=== PATIENT | female | born 1970 | race Two or more races ===

== ENCOUNTER 2016-08-11 23:07 | Emergency (ER) | payer MEDICAID ==
[~2016-08-11] VITALS: Ht 170.2 cm; Wt 75.8 kg
[~2016-08-11 23:07] MED LIST: ALPR0.5T; ATEN50TA PO; ATEN50TA80
[2016-08-12 00:18] LABS: Basophils # (auto) 0.1 uL; Basophils % (auto) 0.7 % (0.0-2.0); Eosinophils # (auto) 0.6 uL; Eosinophils % (auto) 5.2 % (0.0-7.0); Hematocrit 41.9 % (36.0-46.0); Hemoglobin 13.9 g/dL (12.2-16.2); Lymphocytes # (auto) 4.3 uL; Lymphocytes % (auto) 38.4 % (10.0-50.0); Mean Corpuscular Hemoglobin 28.9 pg (28.0-32.0); Mean Corpuscular Hgb Conc. 33.3 g/dL (32.0-36.0); Mean Platelet Volume 8.6 fL (7.4-10.4); Monocytes # (auto) 0.9 uL; Neutrophils # (auto) 5.4 uL; Neutrophils % (auto) 47.7 % (37.0-80.0); Platelet Count (auto) 326 10^3/uL (140-450); Red Cell Distribution Width 14.5 % (11.6-16.0); White Blood Cell 11.3 10^3/uL (4.4-10.8)
[2016-08-12 00:44] LABS: Albumin 3.4 g/dL (3.4-5.0); BUN/Creatinine Ratio 14.3; Bilirubin, Total 0.2 mg/dL (0.2-1.0); Calcium 8.4 mg/dL (8.5-10.1); Magnesium 2.7 mg/dL (1.6-2.6); Total Protein 7.2 g/dL (6.4-8.2)
[2016-08-12 05:06] LABS: Urine Bilirubin Negative (Negative); Urine Blood Negative /uL (Negative); Urine Color Yellow (Yellow); Urine Glucose Normal (Normal); Urine Ketone Negative (Negative); Urine Mucus FEW (None Seen); Urine Nitrite Negative (Negative); Urine RBC 2 /hpf (0 - 4); Urine Squamous Epithelial Cell FEW /hpf (<5); Urine Urobilinogen Normal (Negative)
[2016-08-12] MEDS ORDERED: MAGNESIUM CITRATE SOLUTION 300 ML BTL PO ONE (05:45)
[2016-08-12 07:30] VITALS: BP 119/79
== END 2016-08-12 08:10 | disposition home or self-care (01) ==
LOC: ER 23:08
DX: K29.00 Acute gastritis without bleeding (principal); K56.41 Fecal impaction; E78.5 Hyperlipidemia, unspecified; I10 Essential (primary) hypertension; F17.210 Nicotine dependence, cigarettes, uncomplicated; Z90.49 Acquired absence of other specified parts of digestive tract; Z88.6 Allergy status to analgesic agent; Z86.73 Personal history of transient ischemic attack (TIA), and cerebral infarction without residual deficits
CPT/HCPCS: 36415; 74176; 76705; 80053; 81001; 81025; 82150; 83690; 83735; 85025; 94761

== ENCOUNTER 2016-08-15 23:17 | Emergency (ER) | payer MEDICAID ==
[~2016-08-15] VITALS: Ht 167.6 cm; Wt 67.6 kg
[2016-08-16 00:13] LABS: Basophils # (auto) 0.1 uL; Basophils % (auto) 0.8 % (0.0-2.0); Eosinophils # (auto) 0.4 uL; Eosinophils % (auto) 4.8 % (0.0-7.0); Hematocrit 42.9 % (36.0-46.0); Lymphocytes % (auto) 32.4 % (10.0-50.0); Mean Corpuscular Hemoglobin 28.2 pg (28.0-32.0); Mean Corpuscular Hgb Conc. 32.7 g/dL (32.0-36.0); Mean Corpuscular Volume 86.1 fL (80.0-100.0); Mean Platelet Volume 8.4 fL (7.4-10.4); Monocytes # (auto) 0.6 uL; Monocytes % (auto) 6.2 % (0.0-12.0); Neutrophils # (auto) 5.2 uL; Neutrophils % (auto) 55.8 % (37.0-80.0); Platelet Count (auto) 291 10^3/uL (140-450); Red Cell Distribution Width 13.4 % (11.6-16.0); White Blood Cell 9.3 10^3/uL (4.4-10.8)
[2016-08-16 00:28] LABS: Albumin 3.4 g/dL (3.4-5.0); BUN/Creatinine Ratio 12.2; Calcium 8.7 mg/dL (8.5-10.1); Potassium 3.9 mmol/L (3.5-5.1)
[2016-08-16 00:30] LABS: INR 0.97 (0.9-1.15); Partial Thromboplastin Time 26.1 sec (22.64-33.71)
[2016-08-16 00:36] LABS: Bilirubin, Total 0.2 mg/dL (0.2-1.0); Total Protein 7.1 g/dL (6.4-8.2)
[2016-08-16 02:35] LABS: Urine RBC None Seen /hpf (0 - 4)
[2016-08-16 02:52] LABS: Urine Bilirubin Negative (Negative); Urine Blood Negative /uL (Negative); Urine Color Yellow (Yellow); Urine Glucose Normal (Normal); Urine Ketone Negative (Negative); Urine Nitrite Negative (Negative); Urine Squamous Epithelial Cell FEW /hpf (<5); Urine Urobilinogen Normal (Negative); Urine pH 6.5 (5.0-8.0)
[2016-08-16] MEDS ORDERED: SODIUM CHLORIDE 0.9% 1,000 ML IV ONE (07:35)
[2016-08-16] MEDS ORDERED: METOCLOPRAMIDE HCL 5MG/ml INJ 2ml VIAL IV ONE (07:45)
[2016-08-16] MEDS ORDERED: KETOROLAC TROMETH 30 MG/ML 1ML VIAL IV ONE (07:45)
[2016-08-16 09:30] VITALS: BP 108/64
== END 2016-08-16 10:51 | disposition home or self-care (01) ==
LOC: ER 23:24
DX: K80.20 Calculus of gallbladder without cholecystitis without obstruction (principal); R10.9 Unspecified abdominal pain; E78.5 Hyperlipidemia, unspecified; I10 Essential (primary) hypertension; Z88.6 Allergy status to analgesic agent; Z88.8 Allergy status to other drugs, medicaments and biological substances
CPT/HCPCS: 36415; 80053; 81001; 81025; 82150; 83690; 85025; 85610; 85730; 96361; 96374; 96375; 99284; J1885; J2765

== ENCOUNTER 2017-10-01 19:33 | Emergency (ER) | payer MEDICAID ==
[~2017-10-01] VITALS: Ht 152.4 cm; Wt 78.9 kg
[2017-10-01 20:59] LABS: Basophils # (auto) 0.1 uL; Basophils % (auto) 0.9 % (0.0-2.0); Eosinophils # (auto) 0.3 uL; Eosinophils % (auto) 2.6 % (0.0-7.0); Hematocrit 40.7 % (36.0-46.0); Hemoglobin 13.3 g/dL (12.2-16.2); Lymphocytes # (auto) 3.3 uL; Lymphocytes % (auto) 29.7 % (10.0-50.0); Mean Corpuscular Hemoglobin 28.6 pg (28.0-32.0); Mean Corpuscular Hgb Conc. 32.8 g/dL (32.0-36.0); Mean Corpuscular Volume 87.2 fL (80.0-100.0); Monocytes # (auto) 0.7 uL; Monocytes % (auto) 6.6 % (0.0-12.0); Neutrophils # (auto) 6.6 uL; Neutrophils % (auto) 60.2 % (37.0-80.0); Nucleated Red Blood Cells % 0.2 %; Platelet Count (auto) 300 10^3/uL (140-450); Red Blood Cells 4.67 10^6/uL (4.0-5.20); Red Cell Distribution Width 14.8 % (11.8-14.3)
[2017-10-01 21:13] LABS: Albumin 3.4 g/dL (3.4-5.0); Calcium 8.1 mg/dL (8.5-10.1); Potassium 3.6 mmol/L (3.5-5.1)
[2017-10-01 21:16] LABS: Bilirubin, Total 0.2 mg/dL (0.2-1.0); Total Protein 7.1 g/dL (6.4-8.2)
[2017-10-01 22:14] LABS: Urine Bacteria NONE SEEN /hpf (None Seen); Urine Blood Negative /uL (Negative); Urine Specific Gravity 1.007 (1.001-1.035); Urine WBC 1 /hpf (0 - 5)
[2017-10-02] MEDS ORDERED: ONDANSETRON HCL 4 MG/2 ML VIAL IV ONE (01:00)
[2017-10-02] MEDS ORDERED: HYDROmorphone HCL 2 MG/ML VL IV ONE (01:00)
[2017-10-02 04:48] VITALS: BP 116/76
== END 2017-10-02 04:25 | disposition home or self-care (01) ==
LOC: ER 19:33
DX: K52.9 Noninfective gastroenteritis and colitis, unspecified (principal); D72.829 Elevated white blood cell count, unspecified; E78.5 Hyperlipidemia, unspecified; I10 Essential (primary) hypertension; F17.210 Nicotine dependence, cigarettes, uncomplicated; Z86.73 Personal history of transient ischemic attack (TIA), and cerebral infarction without residual deficits; Z90.49 Acquired absence of other specified parts of digestive tract; Z88.8 Allergy status to other drugs, medicaments and biological substances; Z88.6 Allergy status to analgesic agent; Z79.899 Other long term (current) drug therapy
CPT/HCPCS: 36415; 74176; 80053; 81001; 81025; 82150; 83690; 85025; 96374; 99285; J1170; J2405

== ENCOUNTER 2018-06-11 16:10 | Inpatient (IN) | payer MEDICAID ==
[~2018-06-11] VITALS: Ht 167.6 cm; Wt 78.7 kg
[2018-06-11] MEDS ORDERED: cloNIDine HCL 0.1 MG TAB ONE (16:39)
[2018-06-11] MEDS ORDERED: cloNIDine HCL 0.1 MG TAB PO ONE (17:00)
[2018-06-11 17:08] LABS: Basophils # (auto) 0.1 uL; Basophils % (auto) 0.8 % (0.0-2.0); Eosinophils # (auto) 0.3 uL; Eosinophils % (auto) 2.9 % (0.0-7.0); Hematocrit 41.8 % (36.0-46.0); Hemoglobin 13.8 g/dL (12.2-16.2); Mean Corpuscular Hemoglobin 28.6 pg (28.0-32.0); Mean Corpuscular Volume 86.7 fL (80.0-100.0); Monocytes # (auto) 0.6 uL; Monocytes % (auto) 6.2 % (0.0-12.0); Neutrophils % (auto) 60.1 % (37.0-80.0); Nucleated Red Blood Cells % 0.1 %; Platelet Count (auto) 306 10^3/uL (140-450); Red Blood Cells 4.82 10^6/uL (4.0-5.20); Red Cell Distribution Width 14.7 % (11.8-14.3); White Blood Cell 9.9 10^3/uL (4.4-10.8)
[2018-06-11 17:44] LABS: Urine Bacteria NONE SEEN /hpf (None Seen); Urine Blood Negative /uL (Negative); Urine Specific Gravity 1.003 (1.001-1.035); Urine WBC <1 /hpf (0 - 5)
[2018-06-11 17:57] LABS: Alanine Aminotransferase 22 U/L (13-56); Albumin 3.8 g/dL (3.4-5.0); Anion Gap 6 (5-15); Blood Urea Nitrogen 9 mg/dL (7-18); Calcium 8.8 mg/dL (8.5-10.1); Carbon Dioxide 22 mmol/L (21-32); Chloride 111 mmol/L (98-107); Glucose 90 mg/dL (74-106); Potassium 3.8 mmol/L (3.5-5.1); Sodium 139 mmol/L (136-145)
[2018-06-11 18:02] LABS: Alkaline Phosphatase 85 U/L (45-117); Aspartate Aminotransferase 15 U/L (15-37); Bilirubin, Total 0.2 mg/dL (0.2-1.0); GFR African American 106 mL/min; GFR Non-African American 88 mL/min; Total Protein 7.4 g/dL (6.4-8.2)
[2018-06-11 22:56] LABS: Amylase 45 U/L (25-115); Lipase 240 U/L (73-393)
[2018-06-12] VITALS (7 sets, daily range): BP systolic 100–123; BP diastolic 45–76
[2018-06-12] MEDS ORDERED: CIPROFLOXACIN 400MG/200ML 200 ML IV ONE
[2018-06-12] MEDS ORDERED: metroNIDAZOLE 500MG/100ML 100 ML IV ONE
[2018-06-12] MEDS ORDERED: ONDANSETRON HCL 4 MG/2 ML VIAL IV PRN (03:30)
--- NOTE | 2018-06-12 04:20 | NUR ---
Telemetry admit from ER Patient admitted to Telemetry unit and oriented to primary RN, unit, room, bed, and unit policies regarding patient care and visiting hours. Patient now on continuous telemetry monitoring, tele box #21 and telemetry reading on arrival to unit is sinus rhythm with artifact. Bed is in lowest position and locked. Call light within reach. Board updated. Patient weighed by bedscale and encouraged to call if they need something. All questions and concerns addressed, patient verbalized understanding.
[2018-06-12] MEDS: IBUPROFEN 600 MG TAB PO PRN ×2 (04:30→21:50)
--- NOTE | 2018-06-12 05:02 | NUR ---
Myriam hospitalist because patient does not have a diet order but is also having abdominal pain likely related to cholelithiasis and has a surgical consult pending. Patient has confirmed her home meds: Labetalol 50 mg PO BID and Lorazepam 0.5 mg PO q 12 hrs PRN anxiety. Addendum: 06/12/18 at 0541 by NASRIN ESCALANTE RN Patient takes Xanax 0.5 mg PO q 12 hrs PRN anxiety, not Lorazepam
--- NOTE | 2018-06-12 05:11 | NUR ---
Patient signed smoking AMA and went downstairs. Patient states they want to leave the floor Against Medical Advice (AMA) to go outside and smoke. Patient encouraged to stay on floor and not smoke. Patient advised of the risks and benefits of leaving AMA. Patient verbalized understanding and signed required AMA form.
[2018-06-12] MEDS ORDERED: ALPR0.5T7 PO (05:16)
--- NOTE | 2018-06-12 05:32 | NUR ---
Patient has returned to unit and is back in her bed.
--- NOTE | 2018-06-12 07:00 | NUR ---
Opening Shift Note Assumed care of patient, sleeping but easily aroused. No S/S of distress/SOB or pain. Will continue to monitor for changes Q1hr and PRN.
[2018-06-12 09:23] LABS: Cholesterol 184 mg/dL (< 200); Triglycerides 118 mg/dL (< 150)
[2018-06-12 09:25] LABS: HDL Cholesterol 40 mg/dL (40-59); LDL Cholesterol 139 mg/dL (< 100)
[2018-06-12] MEDS: ATENOLOL 50 MG TAB PO SCH ×2 (10:00→21:46)
--- NOTE | 2018-06-12 13:20 | NUR ---
SPOKE WITH DR. TALBOT. PATIENT NEEDS A CARDIOLOGY WORK UP AND CLEARANCE BEFORE DR. TALBOT WILL DO ANYTHING CONCERNING THE GALL BLADDER.
--- NOTE | 2018-06-12 19:12 | NUR ---
Opening Shift Note Assumed care of patient, awake and alert x 4. No S/S of distress/SOB or pain. Bed is in lowest position and locked. Call light is within reach. Board updated. Tele box number matches monitor and leads are in correct placement. Instructed on POC and to call for assist PRN, will continue to monitor for changes Q1hr and PRN.
[2018-06-13 05:00] VITALS: BP 100/51
[2018-06-13 07:43] LABS: Basophils # (auto) 0 uL; Basophils % (auto) 0.5 % (0.0-2.0); Eosinophils # (auto) 0.2 uL; Eosinophils % (auto) 3.1 % (0.0-7.0); Hematocrit 39.6 % (36.0-46.0); Hemoglobin 13.1 g/dL (12.2-16.2); Lymphocytes # (auto) 2.5 uL; Lymphocytes % (auto) 37.1 % (10.0-50.0); Mean Corpuscular Hemoglobin 28.6 pg (28.0-32.0); Mean Corpuscular Hgb Conc. 32.9 g/dL (32.0-36.0); Mean Corpuscular Volume 86.9 fL (80.0-100.0); Monocytes # (auto) 0.5 uL; Monocytes % (auto) 6.8 % (0.0-12.0); Neutrophils # (auto) 3.6 uL; Neutrophils % (auto) 52.5 % (37.0-80.0); Nucleated Red Blood Cells % 0.1 %; Platelet Count (auto) 261 10^3/uL (140-450); Red Blood Cells 4.56 10^6/uL (4.0-5.20); Red Cell Distribution Width 14.8 % (11.8-14.3); White Blood Cell 6.9 10^3/uL (4.4-10.8)
[2018-06-13 07:46] LABS: BUN/Creatinine Ratio 13.9; Calcium 8.3 mg/dL (8.5-10.1); Potassium 4.4 mmol/L (3.5-5.1)
[2018-06-13 08:00] VITALS: BP 105/54
--- NOTE | 2018-06-13 08:05 | NUR ---
Opening Shift Note Assumed care of patient, awake, alert, and oriented x4. Patient has slight pain in her right upper quadrant. Patient has IV in left forearm 22g saline locked and flushing well, patient tolerating well. Patient is on room air with no S/S of distress/SOB. Patient's skin is intact. Instructed on POC and to call for assist PRN, will continue to monitor for changes Q1hr and PRN. Bed in lowest locked position, call light within reach.
[2018-06-13] MEDS: ASPirin-EC 81 mg tab PO SCH (08:34)
[2018-06-13] MEDS: ATENOLOL 50 MG TAB PO SCH ×2 (08:57→21:39)
[2018-06-13 09:00] VITALS: BP 105/54
--- NOTE | 2018-06-13 09:15 | NUR ---
Patient signed smoking AMA Patient states they want to leave the floor Against Medical Advice (AMA) to go outside and smoke. Patient encouraged to stay on floor and not smoke. Patient advised of the risks and benefits of leaving AMA to smoke. Patient verbalized understanding.
--- NOTE | 2018-06-13 09:28 | NUR ---
PATIENT RETURNED TO FLOOR PATIENT RETURNED TO FLOOR AFTER AMA TO SMOKE. NO S/S OF DISTRESS NOTED. WILL CONTINUE TO MONITOR.
--- NOTE | 2018-06-13 12:00 | NUR ---
Patient off unit Patient states they want to leave the floor Against Medical Advice (AMA) to go outside and smoke. Patient encouraged to stay on floor and not smoke. Patient advised of the risks and benefits of leaving AMA to smoke. Patient verbalized understanding.
--- NOTE | 2018-06-13 12:20 | NUR ---
PATIENT RETURNED TO FLOOR PATIENT RETURNED TO FLOOR AFTER AMA TO SMOKE. NO S/S OF DISTRESS NOTED. WILL CONTINUE TO MONITOR.
[2018-06-13 13:00] VITALS: BP 116/69
[2018-06-13] MEDS: IBUPROFEN 600 MG TAB PO PRN (14:04)
[2018-06-13 17:00] VITALS: BP 110/45
[2018-06-13] MEDS: DOCUSATE SOD 100 MG CAP PO PRN (18:27)
--- NOTE | 2018-06-13 18:38 | NUR ---
END OF SHIFT PATIENT RESTING IN BED. NO S/S OF DISTRESS. INSTRUCTED PATIENT TO CALL PRN. BED IN LOWEST LOCKED POSITION, CALL LIGHT WITHIN REACH.
[2018-06-13 21:15] VITALS: BP 106/58
[2018-06-14 05:00] VITALS: BP 100/55
[2018-06-14 07:57] VITALS: BP 117/75
--- NOTE | 2018-06-14 08:02 | NUR ---
Opening Shift Note Assumed care of patient, awake, alert, and oriented x4. Patient has no complaints of pain at this time. Patient has IV in left forearm 22g saline locked and flushing well, patient tolerating well. Patient is on room air with no S/S of distress/SOB. Patient's skin is intact. Instructed on POC and to call for assist PRN, will continue to monitor for changes Q1hr and PRN. Bed in lowest locked position, call light within reach.
[2018-06-14 09:21] VITALS: BP 117/75
[2018-06-14] MEDS: ATENOLOL 50 MG TAB PO SCH ×2 (09:25→22:00)
[2018-06-14] MEDS: ASPirin-EC 81 mg tab PO SCH (09:25)
[2018-06-14 09:54] LABS: INR 0.98 (0.9-1.15); Partial Thromboplastin Time 26.8 sec (23.78-33.04); Prothrombin Time 10.5 sec (9.27-12.13)
[2018-06-14 12:50] VITALS: BP 121/74
--- NOTE | 2018-06-14 15:02 | NUR ---
NUTRITION ASSESSMENT NOTES Please refer to link notes of nutrition screen form filed under the intervention section of the plan of care for further details. Est. Needs: 1600 kcal to 1950 kcal (20-25 kcal/kgBW), 63 gms to 79 gms pro (0.8-1.0 gms/kgBW). Will continue to monitor pertinent labs and reassess nutrient need prn Thank you. Addendum: 06/14/18 at [address] Amended: Links added.
[2018-06-14 17:00] VITALS: BP 118/87
--- NOTE | 2018-06-14 17:16 | NUR ---
AT BEDSIDE DR. Triston CASTANO AT BEDSIDE. PER MD, PATIENT TO GET LAPAROSCOPIC CHOLECYSTECTOMY POSSIBLE OPEN TOMORROW. NPO AFTER MIDNIGHT. ORDERS READ BACK AND VERIFIED.
--- NOTE | 2018-06-14 18:40 | NUR ---
END OF SHIFT PATIENT RESTING IN BED. NO S/S OF DISTRESS. INSTRUCTED PATIENT TO CALL PRN. BED IN LOWEST LOCKED POSITION, CALL LIGHT WITHIN REACH. ENDORSED CARE TO [address]JA L[address].
--- NOTE | 2018-06-14 20:45 | NUR ---
Opening Shift Note: A&Ox4, resting in bed. Room air, pain level 0/10, and ambulates independently without assistive devices. Bed locked in lowest positions, call light within reach, and side rails up x2. IV 22 g in left forearm IID removed related to redness and painful. Skin intact. POC discussed and questions answered. Will continue to round prn.
[2018-06-14 22:00] VITALS: BP 105/52
--- NOTE | 2018-06-14 22:00 | NUR ---
Page to manager organizational hospitalist for possible order to restart home xanax order of 0.5 mg prn for anxiety. No new orders at this time per hospitalist. Will endorse to day shift nurse for attending physician.
--- NOTE | 2018-06-15 | NUR ---
NPO for lap sheridan possible open with Dr. Velazquez on 06/15/18.l
--- NOTE | 2018-06-15 | NUR ---
New IV: IV 22 g inserted in right hand x3 attempts IID. Patient tolerated well.
[2018-06-15 05:00] VITALS: BP 94/46
--- NOTE | 2018-06-15 06:00 | NUR ---
CHG bath completed per protocol.
[2018-06-15 08:07] VITALS: BP 101/58
--- NOTE | 2018-06-15 08:11 | NUR ---
Opening Shift Note Assumed care of patient, awake, alert, and oriented x4. Patient has no complaints of pain at this time. Patient has IV in right hand 22g saline locked and flushing well, patient tolerating well. Patient is on room air with no S/S of distress/SOB. Patient's skin is intact. Instructed on POC and to call for assist PRN, will continue to monitor for changes Q1hr and PRN. Bed in lowest locked position, call light within reach.
[2018-06-15] MEDS ORDERED: PROPOFOL 10 MG/ML 20 ML IV ONE ×2 (08:28→10:00)
[2018-06-15] MEDS ORDERED: ROCURONIUM 10MG/ML 10ML VIAL IV ONE (08:28)
[2018-06-15] MEDS ORDERED: MIDAZOLAM HCL 1MG/1ML-2 ML VIAL ONE ×2 (08:28→10:25)
[2018-06-15] MEDS ORDERED: fentaNYL CITRATE 100 MCG/2 ML VL ONE (08:28)
[2018-06-15] MEDS ORDERED: SUCCINYLCHOLINE CHLORIDE 20 MG/ML 10ML VIAL IV ONE (08:33)
--- NOTE | 2018-06-15 08:42 | NUR ---
OFF UNIT PATIENT TAKEN TO PRE-OP VIA BED. NO S/S OF DISTRESS NOTED AT TIME OF DEPARTURE.
[2018-06-15] MEDS ORDERED: ceFAZolin 1GM/50ML 50 ML IV ONE (08:57)
[2018-06-15 09:00] VITALS: BP 101/58
[2018-06-15] MEDS: ASPirin-EC 81 mg tab PO SCH (09:05)
[2018-06-15] MEDS: ATENOLOL 50 MG TAB PO SCH (09:05)
[2018-06-15] MEDS ORDERED: LIDOCAINE 1% HCL (LOCAL ANESTH.) INJ 20ML MDV ONE (09:24)
[2018-06-15] MEDS ORDERED: GLYCOPYRROLATE 0.2 MG/ML 1ML VIAL ONE (09:57)
[2018-06-15] MEDS ORDERED: NEOSTIGMINE 1 MG/ML INJ (10mg/10ML VIAL) ONE (09:57)
[2018-06-15] MEDS ORDERED: HYDROmorphone HCL 2 MG/ML VL ONE (10:18)
[2018-06-15] MEDS: HYDROmorphone HCL 2 MG/ML VL IV PRN ×3 (10:20→19:50)
[2018-06-15] MEDS ORDERED: METOCLOPRAMIDE HCL 5MG/ml INJ 2ml VIAL IV ONE (10:30)
[2018-06-15] MEDS ORDERED: MIDAZOLAM HCL 1MG/1ML-2 ML VIAL IM ONE (10:30)
--- NOTE | 2018-06-15 11:30 | NUR ---
ON UNIT PATIENT TRANSFERRED BACK TO FLOOR VIA BED. NO S/S OF DISTRESS NOTED AT TIME OF ARRIVAL. BED ALARM ON.
[2018-06-15 13:00] VITALS: BP 115/70
[2018-06-15] MEDS: SODIUM CHLORIDE 0.9% 1,000 ML IV SCH (13:00)
--- NOTE | 2018-06-15 15:19 | NUR ---
INCENTIVE SPIROMETER AND ABDOMINAL BINDER INCENTIVE SPIROMETER PROVIDED. EDUCATION GIVEN. PATIENT VERBALIZED AND DEMONSTRATED UNDERSTANDING. ABDOMINAL BINDER PLACED ON PATIENT SHE IS EXPERIENCING PAIN WHEN MOVING OR COUGHING, EDUCATION PROVIDED.
[2018-06-15 17:00] VITALS: BP 130/65
[2018-06-15] MEDS: traMADol HCL 50 MG TAB PO PRN ×2 (17:15→22:17)
--- NOTE | 2018-06-15 18:06 | NUR ---
IV insertion IV access obtained, via clean sterile technique by inserting 22 gauge catheter at right AC after 1 attempt. IV secured properly. No trauma to site. Patient tolerated well.
--- NOTE | 2018-06-15 18:06 | NUR ---
IV removal IV DC'd from right hand with clean sterile technique, catheter fully intact. Pressure dressing applied to site. Patient tolerated well.
--- NOTE | 2018-06-15 18:57 | NUR ---
END OF SHIFT PATIENT RESTING IN BED. NO S/S OF DISTRESS. INSTRUCTED TO CALL PRN. BED IN LOWEST LOCKED POSITION, CALL LIGHT WITHIN REACH. ENDORSED CARE TO NOC RN.
--- NOTE | 2018-06-15 19:45 | NUR ---
Opening Shift Note: A&Ox4, very anxious at this time. Room air, pain level 9/10, and ambulates baseline: independently without assistive devices; currently SBA without assistive devices. Bed locked in lowest position, side rails up x2, and call light within reach. IV 22 g right AC running NS at 75 ml/hr inserted on 06/15/18. Post lap sheridan with Dr. Velazquez 06/15/18. Skin: x4 incision sites glued CDI. Abdominal binder in place and to be worn AAT. Patient does have AMA signed in the front of her hard chart to smoke. POC discussed and questions answered. Will address pain and anxiety and continue to round prn.
--- NOTE | 2018-06-15 20:00 | NUR ---
Page sent to extension supervisor hospitalist for anxiety medication. Patient states she is having an anxiety attack associated with high blood pressure 140/104, shaking, and palpitations. Will await return page.
--- NOTE | 2018-06-15 20:20 | NUR ---
Page return: New order from environmental services director hospitalist for one time dose of xanax 0.5mg PO. Patient takes 0.5 mg xanax prn at home for anxiety.
[2018-06-15] MEDS ORDERED: ALPRAZolam 0.5 MG TAB PO ONE (20:45)
[2018-06-15 22:01] VITALS: BP 109/71
[2018-06-16] MEDS: SODIUM CHLORIDE 0.9% 1,000 ML IV SCH ×3 (02:18→20:26)
[2018-06-16] MEDS: DOCUSATE SOD 100 MG CAP PO PRN ×2 (02:22→20:26)
[2018-06-16] MEDS: HYDROmorphone HCL 2 MG/ML VL IV PRN ×3 (03:58→20:25)
[2018-06-16 04:56] VITALS: BP 125/74
[2018-06-16 06:40] LABS: Basophils # (auto) 0 uL; Basophils % (auto) 0.5 % (0.0-2.0); Eosinophils # (auto) 0.2 uL; Eosinophils % (auto) 2.6 % (0.0-7.0); Hematocrit 36.3 % (36.0-46.0); Hemoglobin 12.3 g/dL (12.2-16.2); Lymphocytes # (auto) 1.9 uL; Lymphocytes % (auto) 27.5 % (10.0-50.0); Mean Corpuscular Hemoglobin 29.2 pg (28.0-32.0); Mean Corpuscular Hgb Conc. 33.9 g/dL (32.0-36.0); Mean Corpuscular Volume 86.3 fL (80.0-100.0); Monocytes # (auto) 0.6 uL; Neutrophils # (auto) 4.3 uL; Neutrophils % (auto) 61.4 % (37.0-80.0); Platelet Count (auto) 238 10^3/uL (140-450); Red Cell Distribution Width 14.1 % (11.8-14.3); White Blood Cell 7.1 10^3/uL (4.4-10.8)
[2018-06-16 06:59] LABS: Calcium 7.7 mg/dL (8.5-10.1); Potassium 3.7 mmol/L (3.5-5.1)
[2018-06-16 07:02] LABS: BUN/Creatinine Ratio 13.4; Bilirubin, Total 0.4 mg/dL (0.2-1.0); Total Protein 6.2 g/dL (6.4-8.2)
[2018-06-16 09:00] VITALS: BP 117/66
[2018-06-16] MEDS: ASPirin-EC 81 mg tab PO SCH (09:50)
[2018-06-16] MEDS: ATENOLOL 50 MG TAB PO SCH (09:51)
--- NOTE | 2018-06-16 09:54 | NUR ---
Patient off unit pt out to smoke, encouraged to stay and not smoke but she states she is "craving one" refusing smoking cessation at this time. No distress noted on departure
--- NOTE | 2018-06-16 12:22 | NUR ---
SPOKE TO HOSPITALIST MD GUPTA MADE AWARE OF PATIENTS STATUS. NEW ORDERS RECEIVED FOR ABD CT. WILL CONT CARE
[2018-06-16] MEDS ORDERED: ALPRAZolam 0.5 MG TAB PO PRN (12:30)
[2018-06-16 13:00] VITALS: BP 135/97
[2018-06-16 17:00] VITALS: BP 109/67
--- NOTE | 2018-06-16 18:48 | NUR ---
Pt off unit pt down to smoke, pt noted ambulatory independently, she grabbed a wheelchair and states "going down to smoke". Pt continues to refuse smoking cessation. No distress noted or sob
--- NOTE | 2018-06-16 19:00 | NUR ---
Patient care endorsed endorsed care to Jasmin marsh, patient noted been wheeled down the [facility]ris back to her room by her family member. No distress noted
--- NOTE | 2018-06-16 20:15 | NUR ---
Opening Shift Note: A&Ox4, resting in bed. Room air; pain level 9/10 in abdomen; and baseline: ambulates independently without assistive devices; currently SBA without assistive devices. Bed locked in lowest position, side rails up x2, and call light within reach. IV 22 g in right AC running NS at 75 ml/hr inserted on 06/15/18. Patient is s/p lap sheridan with Dr. Velazquez on 06/15/18. Skin: x4 incision sites all glued CDI with abdominal binder in place. POC discussed and questions answered. Will continue to round prn.
[2018-06-16 21:45] VITALS: BP 136/67
--- NOTE | 2018-06-16 22:30 | NUR ---
Switch to room 288A related to complications with roommate.
[2018-06-17] MEDS: HYDROmorphone HCL 2 MG/ML VL IV PRN ×2 (02:24→11:41)
[2018-06-17 04:25] VITALS: BP 112/73
--- NOTE | 2018-06-17 08:00 | NUR ---
Morning note patient resting in bed with even and unlabored respirations on RA. Instructed patient on POC, fall precautions and to call for assistance as needed. Patient verbalized understanding. Fall precautions in place with bed in low locked position with call light within reach. Incisions to the abdomen are clean, dry and intact with no redness noted. Will continue to monitor q1hr & PRN.
[2018-06-17 08:49] VITALS: BP 122/75
[2018-06-17] MEDS: DOCUSATE SOD 100 MG CAP PO PRN (09:19)
[2018-06-17] MEDS: traMADol HCL 50 MG TAB PO PRN (09:19)
[2018-06-17] MEDS: ASPirin-EC 81 mg tab PO SCH (09:19)
[2018-06-17] MEDS: ATENOLOL 50 MG TAB PO SCH (09:20)
--- NOTE | 2018-06-17 09:25 | NUR ---
Patient ambulating around nursing unit with a steady gait.
--- NOTE | 2018-06-17 11:14 | NUR ---
Nutrition Follow-up Notes Wt.: 78.7kg Pt ws sleeping with no family by beside. per pt records pt s/p lap sheridan 06/15. pt is currently on soft diet with inadequate PO of 25% x 2 since last night per RN doc Est. Needs: 1600 kcal to 1950 kcal (20-25 kcal/kgBW), 63 gms to 79 gms pro (0.8-1.0 gms/kgBW). Will continue to monitor pertinent labs and reassess nutrient need prn Labs: CA 7.7 L, ALB 3.0 L. Skin: Ernst scale 19, low risk, incision at site of sx per RN doc GI: Pt has no BM reported constipated per mincing machine operator. PES: Partially resolved: Increased nutrient needs r/t current/chronic medical status aeb Acute abdominal pain, Gallstones,Cholecystitis, acute with cholelithiasis, NPO/Clear Liquid diet.. Altered nutrition related lab values r/t acute/chronic medical condition aeb hyperchloremia, elev. LDL, hypocalcemia Will continue to monitor PO intake, skin status, pertinent labs and weight trend. F/u in 3-5 days. Rec.: 1.) Consider ensure Enlive 1 carton bid if PO is low. 2.) Consider close supervision with meals. 3.) Refer to RD for further nutrition educ. and weight monitoring upon discharge. 4.) Continue current plan of care.
[2018-06-17 13:00] VITALS: BP 141/79
--- NOTE | 2018-06-17 16:55 | NUR ---
was at bedside - Dr. Lefty Olea was at bedside discussing POC and discharge plan. Dr. Velazquez needs to clear patient for discharge. Dr. Velazquez will be coming to bedside shortly per Dr. Olea.
[2018-06-17 17:00] VITALS: BP 120/73
--- NOTE | 2018-06-17 17:25 | NUR ---
Prescription called into [facility] pharmacy per patient's request.
--- NOTE | 2018-06-17 17:34 | NUR ---
was at bedside - Dr. Marcus Velazquez was at bedside. Patient is clear for discharge. Dr. Olea to write prescriptions.
[2018-06-17] MEDS ORDERED: TRAM50TA2 PO (18:18)
[2018-06-17] MEDS: SODIUM CHLORIDE 0.9% 1,000 ML IV SCH (18:20)
--- NOTE | 2018-06-17 19:17 | NUR ---
Discharge Discharge education and paperwork provided to the patient. Patient verbalized understanding. Patient reports having insurance. Instructed patient on follow up care facilities and provided patient with information for all facilities, including information to [facility] and [facility]. IV removed with clean technique with catheter intact. Dressing applied. Patient tolerated well. Incisions to abdomen are clean, dry and intact with no drainage or redness noted. Patient instructed on prescription called into [facility]'s pharmacy per patient's request. Patient taken to private vehicle via wheelchair by staff member with a family member at patient's side. Patient reports having all personal belongings. No s/s of distress noted at time of discharge.
== END 2018-06-17 19:20 | disposition home or self-care (01) | DRG 263 ==
LOC: ER 16:16 → TELE 06-12 03:29 → TELE-WESTW 06-12 04:23 → WEST WING 06-14 00:15
PROVIDERS: ADMIT Nurse Practitioner Family; ATTEND Internal Medicine Pulmonary Disease
PROC: 0FT44ZZ Resection of Gallbladder, Percutaneous Endoscopic Approach (ICD-10-PCS; principal; 2018-06-15 09:07)
DX: K80.00 Calculus of gallbladder with acute cholecystitis without obstruction (principal); J84.10 Pulmonary fibrosis, unspecified; E78.5 Hyperlipidemia, unspecified; I10 Essential (primary) hypertension; F41.9 Anxiety disorder, unspecified; R07.89 Other chest pain; R91.1 Solitary pulmonary nodule; F17.210 Nicotine dependence, cigarettes, uncomplicated; M54.9 Dorsalgia, unspecified; Z88.1 Allergy status to other antibiotic agents; Z68.25 Body mass index [BMI] 25.0-25.9, adult; Z86.73 Personal history of transient ischemic attack (TIA), and cerebral infarction without residual deficits; Z88.5 Allergy status to narcotic agent; Z88.8 Allergy status to other drugs, medicaments and biological substances; Z90.49 Acquired absence of other specified parts of digestive tract
CPT/HCPCS: 36415; 71045; 71250; 74176; 76705; 80048; 80053; 80061; 81001; 81025; 82150; 83690; 84484; 84702; 85025; 85610; 85730; 86850; 86900; 86901; 87040; 93005; 96365; 96368; A6257; G0378; J0330; J0690; J2001; J2250; J2405; J2704; J3490